=== PATIENT | male | born 1935 | race Caucasian/White ===

== ENCOUNTER 2017-04-14 10:42 | Inpatient (IN) | payer OTHER, MEDICARE ==
[~2017-04-14] VITALS: Ht 167.6 cm; Wt 78.0 kg
--- NOTE | 2017-04-14 10:48 | ED GENERAL ADULT ---
History of Present Illness General Chief Complaint: Fall Stated Complaint: SYNCOPE Source: patient Exam Limitations: poor historian Vital Signs & Intake/Output Vital Signs & Intake/Output Vital Signs Date Time Temp Pulse Resp B/P B/P Pulse O2 O2 Flow FiO2 Mean Ox Delivery Rate 04/14 1535 Room Air 04/14 1534 97.6 50 18 157/69 98 Room Air 04/14 1049 97.0 43 20 199/77 97 Room Air Allergies Coded Allergies: No Known Allergies (04/14/17) Reconcile Medications Aspirin (Aspirin*) 81 MG TAB.CHEW 1 TAB PO DAILY HEART HEALTH (Reported) Losartan Potassium 100 MG TABLET 1 TAB PO DAILY HEART (Reported) Triage Nurses Notes Reviewed? yes Onset: Abrupt Duration: minute(s): Timing: recent history HPI: 04/14/17 11 AM 82-year-old male presents to the emergency department for syncope. The patient states that he was in his usual state of health until earlier today he was walking and he suddenly went out. He fell back and hit his head. He has a 3 inch laceration to his occipital scalp. No neck pain or other complaints. The onset of the symptoms were abrupt, the duration was just today, the severity is significant; as his symptoms required him to come to the emergency for care. He has a past medical history of hypertension. He did take his medications today. He is bradycardic in the ED Past History Travel History Traveled to [place] past 21 day No Medical History Any Pertinent Medical History? see below for history Cardiovascular: hypertension Cancer(s): prostate cancer Surgical History Surgical History: non-contributory Psychosocial History What is your primary language Fijian Tobacco Use: Quit >30 days ago ETOH Use: occasional use Illicit Drug Use: denies illicit drug use Family History Hx Contributory? No Review of Systems Review of Systems Constitutional: Denies: fever. EENTM: Reports: see HPI. Respiratory: Denies: short of breath. Cardiovascular: Reports: no symptoms. GI: Denies: abdominal pain. Genitourinary: Reports: no symptoms. Musculoskeletal: Reports: no symptoms. Skin: Denies: rash. Neurological/Psychological: Reports: headache. Hematologic/Endocrine: Reports: bruising, bleeding. Immunologic/Allergic: Reports: no symptoms. Physical Exam Physical Exam General Appearance: well developed/nourished, alert, awake, anxious Head: lacerations Eyes: Bilateral: normal appearance, PERRL, EOMI. Ears, Nose, Throat: normal pharynx Neck: normal inspection, supple, full range of motion Respiratory: normal breath sounds, chest non-tender, no respiratory distress Cardiovascular: bradycardia Peripheral Pulses: 4+ radial (R), 4+ radial (L) Gastrointestinal: soft, non-tender Back: decreased range of motion Extremities: pedal edema Neurologic/Psych: no motor/sensory deficits, awake, alert, oriented x 3 Skin: intact, normal color, warm/dry, laceration Core Measures ACS in differential dx? No CVA/TIA Diagnosis: No Severe Sepsis Present: No Septic Shock Present: No Progress Differential Diagnoses I considered the following diagnoses in my evaluation of the patient: [ Bradycardia, acute coronary syndrome, adverse drug reaction] Plan of Care: Orders Procedure Date/time Status Heart Healthy Diet 04/14 D Active Admit to inpatient 04/14 1536 Active Vital Signs 04/14 1536 Active Code Status 04/14 1536 Active Add-on Test (ER Only) 04/14 1415 Active URINALYSIS 04/14 1059 Complete EKG 04/14 1059 Active TROPONIN LEVEL 04/14 1058 Complete LYME TITRE 04/14 1058 Active COMPREHENSIVE METABOLIC PANEL 04/14 1058 Complete CBC WITHOUT DIFFERENTIAL 04/14 1058 Complete Laboratory Tests 04/14/17 1210: Urine Color YEL, Urine Clarity CLEAR, Urine pH 6.0, Ur Specific [place] 1.020, Urine Protein NEG, Urine Ketones NEG, Urine Nitrite NEG, Urine Bilirubin NEG, Urine Urobilinogen 0.2, Ur Leukocyte Esterase NEG, Ur Microscopic EXAM NOT REQUIRED, Urine Hemoglobin NEG, Urine Glucose NEG 04/14/17 1100: Anion Gap 8, Estimated GFR > 60, BUN/Creatinine Ratio 27.3 H, Glucose 105 H, Calcium 9.2, Total Bilirubin 0.7, AST 26, ALT 32, Alkaline Phosphatase 77, Troponin I < 0.01, Total Protein 6.6, Albumin 4.2, Globulin 2.4, Albumin/ Globulin Ratio 1.8, CBC w Diff NO MAN DIFF REQ, RBC 4.00 L, MCV 95.0 H, MCH 32.4 H, RDW 13.9, MPV 7.8, Gran % 65.8, Lymphocytes % 20.3 L, Monocytes % 10.9 H, Eosinophils % 2.6, Basophils % 0.4, Absolute Granulocytes 3.5, Absolute Lymphocytes 1.1 L, Absolute Monocytes 0.6, Absolute Eosinophils 0.1, Absolute Basophils 0, PUBS MCHC 34.0 04/14/17 1058: Lyme Disease Antibody Pending Initial ED EKG: bradycardia, LBBB Prior EKG: changed Departure Departure Disposition: HOME OR SELF CARE Condition: Stable Clinical Impression Primary Impression: Syncope Secondary Impressions: Bradycardia Referrals: KEN MATHIAS MD (PCP/Family) Departure Forms: Customer Survey General Discharge Information Comments 04/14/17 Procedure Under sterile technique and with 10 mL of 1% lidocaine 7 kia were placed in the patient's 2-inch scalp laceration by the PA under my direct supervision [place] syncope No CHF No hematocrit less than 30% He does have an abnormal EKG No shortness of breath No systolic blood pressure less than [address] HEAD AND C-SPINE PATIENT: TIERNEY STAPLES PRESENT AGE: 82 PATIENT ACCOUNT NO: [id number] : 37 LOCATION: [facility] ORDERING PHYSICIAN: LAWRENCE PORTILLO DO SERVICE DATE: 04/14/17 EXAM TYPE: CAT - CT CERV SPINE WO IV CONTRAST; CT HEAD WO IV CONTRAST EXAMINATION: CT HEAD WITHOUT CONTRAST CT CERVICAL SPINE WITHOUT CONTRAST CLINICAL INFORMATION: Fall. Altered mental status. COMPARISON: None TECHNIQUE: 5 mm thin axial and reformatted 2.5 mm thin coronal images of brain were obtained. Subsequently, axial 2.5 mm thin and reformatted sagittal and coronal 2 mm thin images of cervical spine were obtained. DLP: 919 mGy-cm FINDINGS: BRAIN: There is no acute intra-axial, extra-axial bleed, masses or midline shift. There is no acute infarct in evolution. The [id number] matter distinction maintained. Both lateral ventricles are enlarged and so are the cortical sulci. Bone windows reveal no calvarial abnormality. There is mild mucoperiosteal thickening bilateral maxillary sinuses. Rest of the paranasal sinuses and mastoid air cells are well aerated. CERVICAL SPINE: There is mild straightening of cervical lordosis. The vertebral heights and alignment appear normal. Mild loss of C3-C4, C4-C5, C5-C6 and C6-C7 disc heights is noted. Moderate ventral and mild posterior spondylosis. The C6-C7 disc level appears fused. The craniovertebral junction appears normal. Moderate C2-C3, C4-C5 and left C3-C4 facet joint arthropathy and hypertrophy is noted. There is mild narrowing of right C3-C4, C4-C5, C6-C7 and bilateral C5-C6 neural foramina from uncovertebral hypertrophic changes are noted. No visible acute fracture or dislocation seen. The prevertebral and paravertebral soft tissues are normal. The thyroid lobes are symmetrical. The lung apices are clear. IMPRESSION: No acute intracranial process seen. There is age-related cerebral volume loss. No acute fracture or dislocation in cervical spine. There are degenerative disc changes with spondylosis C3-C4 through C6-C7 disc level. There is a bony fusion of the C6-C7 disc level. Bilateral uncovertebral hypertrophic changes as described above. DICTATED BY: JOSÉ FELDER MD DATE/TIME DICTATED:04/14/171303 MACHINE REPAIRER MAINTENANCE:JENIFER DATE/TIME TRANSCRIBED:04/14/171303 CONFIDENTIAL, DO NOT COPY WITHOUT APPROPRIATE AUTHORIZATION. <Electronically signed in Other Vendor System> SIGNED BY: JOSÉ FELDER MD 04/14/17 1527 Admission Note Spoke With: Litzy GOLDSTEIN MD Documentation of Exam: Documentation of any treatments & extenuating circumstances including Concerns Regarding Discharge (functional status, medication knowledge or non-compliance, living conditions, etc.) that warrant an admission rather than observation: [The patient needs serial troponins, cardiology consultation inpatient echocardiogram ] Critical Care Note Critical Care Note Critical Care Time: 30-74 min
[2017-04-14 11:10] LABS: ABSOLUTE BASOPHIL COUNT 0 /CUMM (0.0-0.2); ABSOLUTE EOSINOPHIL COUNT 0.1 /CUMM (0.0-0.7); ABSOLUTE GRANULOCYTE CT 3.5 /CUMM (1.4-6.5); ABSOLUTE LYMPH COUNT 1.1 /CUMM (1.2-3.4); ABSOLUTE MONOCYTE COUNT 0.6 /CUMM (0.10-0.60); BASOPHIL % 0.4 % (0.0-2.0); EOSINOPHIL % 2.6 % (0-5); GRANULOCYTE % 65.8 % (42.2-75.2); MEAN CORPUSCULAR HGB 32.4 PG (27.0-31.0); MEAN PLATELET VOLUME 7.8 FL (7.4-10.4); PLATELET COUNT 247 /CUMM (130-400); RBC DISTRIBUTION WIDTH 13.9 % (11.5-14.5); WHITE BLOOD CELL COUNT 5.4 /CUMM (4.8-10.8)
[2017-04-14] MEDS ORDERED: ASPIRIN81 M4 PO (11:23)
[2017-04-14] MEDS ORDERED: LOSARTAN POTAS100 M1 PO (11:23)
--- NOTE | 2017-04-14 12:28 | RADIOLOGY REPORT ---
EXAMINATION: XR PORTABLE CHEST CLINICAL INFORMATION: Status post fall. COMPARISON: 08/30/2009. TECHNIQUE: Portable AP erect view of the chest was obtained. FINDINGS: The cardiomediastinal silhouette is stable appearing with multiple intact sternal wires identified. There are multiple surgical clips overlying the superior right hemithorax along the superior margin of the scapula medially. The lungs and pleural spaces appear clear without evidence of congestion, consolidation, or significant appearing effusion or atelectasis. There is no evidence of pneumothorax or pulmonary edema. Included osseous structures appear largely unremarkable. IMPRESSION: No evidence of an acute intrathoracic process.
--- NOTE | 2017-04-14 15:27 | CT SCAN REPORT ---
EXAMINATION: CT HEAD WITHOUT CONTRAST CT CERVICAL SPINE WITHOUT CONTRAST CLINICAL INFORMATION: Fall. Altered mental status. COMPARISON: None TECHNIQUE: 5 mm thin axial and reformatted 2.5 mm thin coronal images of brain were obtained. Subsequently, axial 2.5 mm thin and reformatted sagittal and coronal 2 mm thin images of cervical spine were obtained. DLP: 919 mGy-cm FINDINGS: BRAIN: There is no acute intra-axial, extra-axial bleed, masses or midline shift. There is no acute infarct in evolution. The [id number] matter distinction maintained. Both lateral ventricles are enlarged and so are the cortical sulci. Bone windows reveal no calvarial abnormality. There is mild mucoperiosteal thickening bilateral maxillary sinuses. Rest of the paranasal sinuses and mastoid air cells are well aerated. CERVICAL SPINE: There is mild straightening of cervical lordosis. The vertebral heights and alignment appear normal. Mild loss of C3-C4, C4-C5, C5-C6 and C6-C7 disc heights is noted. Moderate ventral and mild posterior spondylosis. The C6-C7 disc level appears fused. The craniovertebral junction appears normal. Moderate C2-C3, C4-C5 and left C3-C4 facet joint arthropathy and hypertrophy is noted. There is mild narrowing of right C3-C4, C4-C5, C6-C7 and bilateral C5-C6 neural foramina from uncovertebral hypertrophic changes are noted. No visible acute fracture or dislocation seen. The prevertebral and paravertebral soft tissues are normal. The thyroid lobes are symmetrical. The lung apices are clear. IMPRESSION: No acute intracranial process seen. There is age-related cerebral volume loss. No acute fracture or dislocation in cervical spine. There are degenerative disc changes with spondylosis C3-C4 through C6-C7 disc level. There is a bony fusion of the C6-C7 disc level. Bilateral uncovertebral hypertrophic changes as described above.
--- NOTE | 2017-04-14 16:01 | History & Physical ---
KULWANT SORTO,VINCENT 04/14/17 1601: General Information and HPI History of Present Illness: Mr. Waters is a 82-year-old gentleman with a PMH significant for HTN, prostate cancer s/p seed implantation 10+ years ago and aortic vavle replacement who presents after a syncopal episode. Patient was in his usual health until this morning around 10AM he suddenly felt numb in his left fingers and passed out at work. He collapsed on the floor and hit his head resulting in a laceration in the occipital region. No seizure activitis witnessed reportedly. Prior to the syncopal episode patient had mild frontal headache but no chest pain, palpitations, vision changes, shortness of breath, dizziness/lightheadedness, or focal weakness. He states he has never had similar symptoms or episodes in the past. In ED patient was noted to be bradycardic in 40's and orthostat positive ( SBP 160 -> 130s), warranting an admission for a further evaluation. Patient lives at home with his . Fully independent and functional with all ADLs. 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 He doesn't smoke currently ( quit 50+ years ago). PCP - Dr. Donahue Surveillance System Monitor - Dr. Felder Full code. Allergies/Medications Allergies: Coded Allergies: No Known Allergies (04/14/17) Home Med list Aspirin (Aspirin*) 81 MG TAB.CHEW 1 TAB PO DAILY HEART HEALTH (Reported) Losartan Potassium 100 MG TABLET 1 TAB PO DAILY HEART (Reported) Past History Travel History Traveled to [place] past 21 day No Medical History Cardiovascular: hypertension Cancer(s): prostate cancer Tetanus Vaccine: 04/14/17 Surgical History Surgical History: non-contributory Past Family/Social History Psychosocial History ETOH Use: occasional use Illicit Drug Use: denies illicit drug use Review of Systems Review of Systems Constitutional: Reports: see HPI. Exam & Diagnostic Data Last 24 Hrs of Vital Signs/I&O Vital Signs Date Time Temp Pulse Resp B/P B/P Pulse O2 O2 Flow FiO2 Mean Ox Delivery Rate 04/14 1535 Room Air 04/14 1534 97.6 50 18 157/69 98 Room Air 04/14 1049 97.0 43 20 199/77 97 Room Air Intake & Output 04/14 1600 04/14 0800 04/14 0000 Intake Total Output Total Balance Patient 77.111 kg Weight Weight Reported by Patient Measurement Method Physical Exam General Appearance Alert, Oriented X3, Cooperative, No Acute Distress Skin 3 inch laceration in occipital head Skin Temp/Moisture Exam: Warm/Dry Sepsis Skin Exam (color): Normal for Ethnicity HEENT PERRLA, EOMI, Mucous Membr. moist/pink, Laceration (see above) Neck Supple, No JVD, No thryomegaly Cardiovascular Normal S1, Normal S2, No Murmurs, Gallops, Rubs, Bradycardia Lungs Clear to Auscultation, Normal Air Movement Abdomen Normal Bowel Sounds, Soft, No Tenderness Neurological Normal Speech, Strength at 5/5 X4 Ext, Normal Tone, Sensation Intact, Cranial Nerves 3-12 NL Extremities No Clubbing, No Cyanosis, No Edema, Normal Pulses, No Tenderness/ Swelling Vascular Normal Pulses, Pulses Symmetrical Last 24 Hrs of Labs/Daren: Laboratory Tests 04/14/17 1210: Urine Color YEL, Urine Clarity CLEAR, Urine pH 6.0, Ur Specific [place] 1.020, Urine Protein NEG, Urine Ketones NEG, Urine Nitrite NEG, Urine Bilirubin NEG, Urine Urobilinogen 0.2, Ur Leukocyte Esterase NEG, Ur Microscopic EXAM NOT REQUIRED, Urine Hemoglobin NEG, Urine Glucose NEG 04/14/17 1100: Anion Gap 8, Estimated GFR > 60, BUN/Creatinine Ratio 27.3 H, Glucose 105 H, Calcium 9.2, Total Bilirubin 0.7, AST 26, ALT 32, Alkaline Phosphatase 77, Troponin I < 0.01, Total Protein 6.6, Albumin 4.2, Globulin 2.4, Albumin/ Globulin Ratio 1.8, CBC w Diff NO MAN DIFF REQ, RBC 4.00 L, MCV 95.0 H, MCH 32.4 H, RDW 13.9, MPV 7.8, Gran % 65.8, Lymphocytes % 20.3 L, Monocytes % 10.9 H, Eosinophils % 2.6, Basophils % 0.4, Absolute Granulocytes 3.5, Absolute Lymphocytes 1.1 L, Absolute Monocytes 0.6, Absolute Eosinophils 0.1, Absolute Basophils 0, PUBS MCHC 34.0 04/14/17 1058: Lyme Disease Antibody Pending Assessment/Plan Assessment: Mr. Waters is a 82-year-old gentleman with a PMH significant for HTN and prostate cancer who presents after a syncopal episode concerning for symptomatic bradycardia. # Syncope Most likely 2/2 bradycardia and orthostatic hypotension. It is also possible that he had a TIA. CT head without any acute intracranial process. No significant abnormalities on EKG. * Admit to tele to monitor for arrhythymias * Vitals per protocol * Rule out ACS with serial trops/EKGs * Check TSH and lyme titers * Repeat orthostats (positive in ED) * Echocardiogram * Carotid ultrasound * Cardiology consult * Consider MRI and neuro input # Symptomatic bradycardia * Continuous cardiac monitoring * Appreciate cardio recs # HTN * Cont home meds losartan and ASA # Laceration in the head CT head unremarkable. Patient received Decavac in ED. [place] intact. * Dressing changes as needed - Heart healthy diet - Mild pain pathway - DVTppx with ALPS and SQH - Code: As Ranked By This Provider Problem List: 1. Syncope 2. Bradycardia 3. HTN (hypertension) Core Measures/Miscellaneous Acute Coronary Syndrome ACS Diagnosis: No Cerebrovascular Accident CVA/TIA Diagnosis: No Congestive Heart Failure CHF Diagnosis: No Venous Thromboembolism VTE Risk Factors: Age > 40 No [facility] VTE prophylaxis d/t: No contraindications No VTE Pharm Prophylaxis d/t: No contraindications VTE Diagnosis: No VTE Type: NONE VTE Confirmed by (Test): NONE Severe Sepsis Severe Sepsis Present: No Septic Shock Septic Shock Present: No Miscellaneous Documentation Attending Case Discussed With: SUMIT CRAIG MD Primary Care Physician: KEN DONAHUE MD Patient sees these Specialists See HPI Level of Patient Care: Telemetry JAYDEELIE 04/14/17 1719: Resident Review Statement Resident Statement: examined this patient, discussed with international trade specialist, agreed with international trade specialist, discussed with family, reviewed EMR data (avail), discussed with nursing , discussed with case mgmt, reviewed images Other Findings: is an 82 yo man with PMHx. significant for HTN, CABAG with valve replacement about 10 years ago, prostatic cancer presented to ED with a c/o of syncopal attack. Detailed history as above Vitals, examination, labs and imaging as above EKG: Sinus bradycardia, rate 48, Lt. axis deviation, old q wave not changed from previous EKG. Assessment: #Syncopal episode #Bradycardia #Head laceration 2/2 syncopal episode and fall #Hx. of CABG #Hx. of HTN #Hx. of Prostat cancer Plan: -Will admitt the patient to telemetry floor, will monitor for any arrhythmia and closely monitor heart rate. -Cardiology consult with Dr. Allen -Echocardiogram -Will trend Troponin and EKG x 2 -Fall precaution -Will continue home medications for BP -Will check lyme titer and TSH -Pain management pathway -Heart healthy diet Case discussed with attending DVT ppx: sc heparin Full code
[2017-04-14 18:07] VITALS: BP 136/88
[2017-04-15 00:50] VITALS: BP 116/70
--- NOTE | 2017-04-15 06:51 | PN- Housestaff ---
Subjective Follow-up For: Synope Tele-Events Since Last Visit: SR and SB in 50s PVCs, PACs Subjective: Patient seen and examined at bedside. Resting comfortably in bed with no complaints. Denies any fever, chills, dyspnea, chest pain, palpitations, lightheadedness, dizziness, abdominal pain, n/v/c/d. Review of Systems Constitutional: Reports: see HPI. Objective Last 24 Hrs of Vital Signs/I&O Vital Signs Date Time Temp Pulse Resp B/P B/P Pulse O2 O2 Flow FiO2 Mean Ox Delivery Rate 04/15 1149 53 118/58 04/15 0943 65 112/60 04/15 0835 98.9 04/15 0807 99.7 60 18 120/68 95 Room Air 04/15 0050 97.9 74 20 116/70 95 Room Air 04/14 1807 98.3 69 20 136/88 99 Room Air 04/14 1751 96.4 49 18 150/67 96 04/14 1535 Room Air 04/14 1534 97.6 50 18 157/69 98 Room Air Intake & Output 04/15 1600 04/15 0800 04/15 0000 Intake Total 240 480 Output Total Balance 240 480 Intake, Oral 240 480 Patient 78.018 kg Weight Weight Reported by Patient Measurement Method Physical Exam General Appearance: Alert, Oriented X3, Cooperative, No Acute Distress Other Physical Findings: Skin 3 inch laceration in occipital head Skin Temp/Moisture Exam: Warm/Dry Sepsis Skin Exam (color): Normal for Ethnicity HEENT PERRLA, EOMI, Mucous Membr. moist/pink, Laceration (see above) Neck Supple, No JVD, No thryomegaly Cardiovascular Normal S1, Normal S2, No Murmurs, Gallops, Rubs, Bradycardia Lungs Clear to Auscultation, Normal Air Movement Abdomen Normal Bowel Sounds, Soft, No Tenderness Neurological Normal Speech, Strength at 5/5 X4 Ext, Normal Tone, Sensation Intact, Cranial Nerves 3-12 NL Extremities No Clubbing, No Cyanosis, No Edema, Normal Pulses, No Tenderness/ Swelling Vascular Normal Pulses, Pulses Symmetrical Current Medications: Current Medications Sig/[place] Start time Last Medication Dose Route Stop Time Status Admin Acetaminophen 650 MG Q6P PRN 04/14 1615 AC PO Aspirin 81 MG DAILY 04/15 1000 AC 04/15 PO 0937 Heparin Sodium 5,000 UNIT Q8 04/14 2200 AC 04/15 (Porcine) SC 0644 Lidocaine 0 .STK-MED ONE 04/14 1407 DC .ROUTE Lidocaine 10 ML ONCE ONE 04/14 1400 DC 04/14 SC 04/14 1401 1406 Losartan Potassium 100 MG DAILY 04/15 1000 AC PO Tetanus/Diphtheria 0 .STK-MED ONE 04/14 1407 DC Toxoids Adsorbed IM Tetanus/Diphtheria 0.5 ML ONCE ONE 04/14 1400 DC 04/14 Toxoids Adsorbed IM 04/14 1401 1406 Last 24 Hrs of Lab/Daren Results Last 24 Hrs of Labs/Mics: Laboratory Tests 04/15/17 0600: Anion Gap 8, Estimated GFR 58 L, BUN/Creatinine Ratio 20.0, Magnesium 2.1, CBC w Diff NO MAN DIFF REQ, RBC 4.31 L, MCV 95.8 H, MCH 31.9 H, RDW 13.9, MPV 8.3 , Gran % 75.5 H, Lymphocytes % 12.5 L, Monocytes % 10.4 H, Eosinophils % 1.3, Basophils % 0.3, Absolute Granulocytes 5.5, Absolute Lymphocytes 0.9 L, Absolute Monocytes 0.7 H, Absolute Eosinophils 0.1, Absolute Basophils 0, PUBS MCHC 33.3 04/14/17 2320: Troponin I 0.03, TSH 2.300, Lyme Disease Antibody 0.20 04/14/17 1712: TSH Cancelled 04/14/17 1332: Troponin I 0.03 Assessment/Plan Assessment: Mr. Waters is a 82-year-old gentleman with a PMH significant for HTN and prostate cancer who presents after a syncopal episode concerning for symptomatic bradycardia. # Syncope Most likely 2/2 bradycardia and orthostatic hypotension. It is also possible that he had a TIA. CT head without any acute intracranial process. No significant abnormalities on EKG. * Vitals per protocol * Rule out ACS with serial trops/EKGs - negative * Check TSH and lyme titers - unremarkable * Repeat orthostats - positive * Encourage fluid intake by mouth * Echocardiogram pending * Appreciate cardio recs * Consider MRI, carotid ultrasound and neuro input for recurrent sxs # Bradycardia - improving Occassionaly in sinus bradycardia but mostly in 60s. Currently w/o any sxs. * Continuous cardiac monitoring * Appreciate cardio recs # HTN * Cont home meds losartan and ASA # Laceration in the head CT head unremarkable. Patient received Decavac in ED. [place] intact. * Dressing changes as needed - Heart healthy diet - Mild pain pathway - DVTppx with ALPS and SQH - Code: Problem List: 1. Syncope 2. Bradycardia 3. HTN (hypertension) Pain Ratin Pain Location: 0 Pain Goal: Remain pain free Pain Plan: Mild pathway Tomorrow's Labs & Rationales: None
[2017-04-15 07:57] LABS: ABSOLUTE BASOPHIL COUNT 0 /CUMM (0.0-0.2); ABSOLUTE EOSINOPHIL COUNT 0.1 /CUMM (0.0-0.7); ABSOLUTE GRANULOCYTE CT 5.5 /CUMM (1.4-6.5); ABSOLUTE LYMPH COUNT 0.9 /CUMM (1.2-3.4); ABSOLUTE MONOCYTE COUNT 0.7 /CUMM (0.10-0.60); BASOPHIL % 0.3 % (0.0-2.0); EOSINOPHIL % 1.3 % (0-5); GRANULOCYTE % 75.5 % (42.2-75.2); HEMATOCRIT 41.3 % (42-52); MEAN CORPUSCULAR HGB 31.9 PG (27.0-31.0); MEAN CORPUSCULAR HGB CONC 33.3 G/DL (33.0-37.0); MEAN CORPUSCULAR VOLUME 95.8 FL (80.0-94.0); MEAN PLATELET VOLUME 8.3 FL (7.4-10.4); PLATELET COUNT 253 /CUMM (130-400); RBC DISTRIBUTION WIDTH 13.9 % (11.5-14.5); RED BLOOD CELL CT 4.31 /CUMM (4.70-6.10); WHITE BLOOD CELL COUNT 7.2 /CUMM (4.8-10.8)
[2017-04-15 08:07] VITALS: BP 120/68
[2017-04-15 11:49] VITALS: BP 118/58
--- NOTE | 2017-04-15 11:58 | Cons- Cardiology ---
General Information and HPI Consulting Request Date of Consult: 04/15/17 Requested By: Litzy GOLDSTEIN MD Reason for Consult: syncope Source of Information: patient, old records Allergies/Medications Allergies: Coded Allergies: No Known Allergies (04/14/17) Home Med List: Aspirin (Aspirin*) 81 MG TAB.CHEW 1 TAB PO DAILY HEART HEALTH (Reported) Losartan Potassium 100 MG TABLET 1 TAB PO DAILY HEART (Reported) Current Medications: Current Medications Sig/Napoleon Start time Last Medication Dose Route Stop Time Status Admin Acetaminophen 650 MG Q6P PRN 04/14 1615 AC PO Aspirin 81 MG DAILY 04/15 1000 AC 04/15 PO 0937 Heparin Sodium 5,000 UNIT Q8 04/14 2200 AC 04/15 (Porcine) SC 0644 Lidocaine 0 .STK-MED ONE 04/14 1407 DC .ROUTE Lidocaine 10 ML ONCE ONE 04/14 1400 DC 04/14 SC 04/14 1401 1406 Losartan Potassium 100 MG DAILY 04/15 1000 AC PO Tetanus/Diphtheria 0 .STK-MED ONE 04/14 1407 DC Toxoids Adsorbed IM Tetanus/Diphtheria 0.5 ML ONCE ONE 04/14 1400 DC 04/14 Toxoids Adsorbed IM 04/14 1401 1406 Past History Travel History Traveled to [place] past 21 day No Medical History Blood Transfusion Hx: No Neurological: SYNCOPE EENT: NONE Cardiovascular: hypertension, OPEN HEART SURGERY CARIDAC VALVE REPLACEMNT Respiratory: NONE Gastrointestinal: NONE Hepatic: NONE Renal: NONE Musculoskeletal: NONE Psychiatric: NONE Endocrine: NONE Blood Disorders: NONE Cancer(s): prostate cancer 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 Other Services at Home: None Smoking Status: Never Smoked ETOH Use: occasional use Illicit Drug Use: denies illicit drug use Exam & Diagnostic Data Vital Signs and I&O Vital Signs Date Time Temp Pulse Resp B/P B/P Pulse O2 O2 Flow FiO2 Mean Ox Delivery Rate 04/15 1149 53 118/58 04/15 0943 65 112/60 04/15 0835 98.9 04/15 0807 99.7 60 18 120/68 95 Room Air 04/15 0050 97.9 74 20 116/70 95 Room Air 04/14 1807 98.3 69 20 136/88 99 Room Air 04/14 1751 96.4 49 18 150/67 96 04/14 1535 Room Air 04/14 1534 97.6 50 18 157/69 98 Room Air Intake & Output 04/15 0804/15 0000 04/14 0000 Intake Total 240 480 Output Total Balance 240 480 Intake, Oral 240 480 Patient 172 lb 170 lb Weight Weight Reported by Patient Reported by Patient Measurement Method Labs/Daren Results: Laboratory Tests 04/15 04/14 04/14 06 2320 1712 Chemistry Sodium (137 - 145 mmol/L) 139 Potassium (3.5 - 5.1 mmol/L) 4.7 Chloride (98 - 107 mmol/L) 104 Carbon Dioxide (22 - 30 mmol/L) 27 Anion Gap (5 - 16) 8 BUN (9 - 20 mg/dL) 24 H Creatinine (0.7 - 1.2 mg/dL) 1.2 Estimated GFR (>60 ml/min) 58 L BUN/Creatinine Ratio (7 - 25 %) 20.0 Magnesium (1.6 - 2.3 mg/dL) 2.1 Troponin I (<0.11 ng/ml) 0.03 TSH (0.270 - 4.200 uIU/mL) 2.300 Cancelled Hematology CBC w Diff NO MAN DIFF REQ WBC (4.8 - 10.8 /CUMM) 7.2 RBC (4.70 - 6.10 /CUMM) 4.31 L Hgb (14.0 - 18.0 G/DL) 13.7 L Hct (42 - 52 %) 41.3 L MCV (80.0 - 94.0 FL) 95.8 H MCH (27.0 - 31.0 PG) 31.9 H RDW (11.5 - 14.5 %) 13.9 Plt Count (130 - 400 /CUMM) 253 MPV (7.4 - 10.4 FL) 8.3 Gran % (42.2 - 75.2 %) 75.5 H Lymphocytes % (20.5 - 51.1 %) 12.5 L Monocytes % (1.7 - 9.3 %) 10.4 H Eosinophils % (0 - 5 %) 1.3 Basophils % (0.0 - 2.0 %) 0.3 Absolute Granulocytes (1.4 - 6.5 /CUMM) 5.5 Absolute Lymphocytes (1.2 - 3.4 /CUMM) 0.9 L Absolute Monocytes (0.10 - 0.60 /CUMM) 0.7 H Absolute Eosinophils (0.0 - 0.7 /CUMM) 0.1 Absolute Basophils (0.0 - 0.2 /CUMM) 0 PUBS MCHC (33.0 - 37.0 G/DL) 33.3 Serology Lyme Disease Antibody (RATIO) 0.20 04/14 04/14 1332 1210 Chemistry Troponin I (<0.11 ng/ml) 0.03 Urines Urine Color (YEL,AMB,STR) YEL Urine Clarity (CLEAR) CLEAR Urine pH (5.0 - 8.0) 6.0 Ur Specific [place] (1.001 - 1.035) 1.020 Urine Protein (NEG,<30 MG/DL) NEG Urine Ketones (NEG) NEG Urine Nitrite (NEG) NEG Urine Bilirubin (NEG) NEG Urine Urobilinogen (0.1 - 1.0 EU/dl) 0.2 Ur Leukocyte Esterase (NEG) NEG Ur Microscopic EXAM NOT REQUIRED Urine Hemoglobin (NEG) NEG Urine Glucose (N MG/DL) NEG 04/14 04/14 1100 1058 Chemistry Sodium (137 - 145 mmol/L) 138 Potassium (3.5 - 5.1 mmol/L) 4.8 Chloride (98 - 107 mmol/L) 102 Carbon Dioxide (22 - 30 mmol/L) 27 Anion Gap (5 - 16) 8 BUN (9 - 20 mg/dL) 30 H Creatinine (0.7 - 1.2 mg/dL) 1.1 Estimated GFR (>60 ml/min) > 60 BUN/Creatinine Ratio (7 - 25 %) 27.3 H Glucose (65 - 99 mg/dL) 105 H Calcium (8.4 - 10.2 mg/dL) 9.2 Total Bilirubin (0.2 - 1.3 mg/dL) 0.7 AST (17 - 59 U/L) 26 ALT (21 - 72 U/L) 32 Alkaline Phosphatase (< 127 U/L) 77 Troponin I (<0.11 ng/ml) < 0.01 Total Protein (6.3 - 8.2 g/dL) 6.6 Albumin (3.5 - 5.0 g/dL) 4.2 Globulin (1.9 - 4.2 gm/dL) 2.4 Albumin/Globulin Ratio (1.1 - 2.2 %) 1.8 Hematology CBC w Diff NO MAN DIFF REQ WBC (4.8 - 10.8 /CUMM) 5.4 RBC (4.70 - 6.10 /CUMM) 4.00 L Hgb (14.0 - 18.0 G/DL) 12.9 L Hct (42 - 52 %) 38.0 L MCV (80.0 - 94.0 FL) 95.0 H MCH (27.0 - 31.0 PG) 32.4 H RDW (11.5 - 14.5 %) 13.9 Plt Count (130 - 400 /CUMM) 247 MPV (7.4 - 10.4 FL) 7.8 Gran % (42.2 - 75.2 %) 65.8 Lymphocytes % (20.5 - 51.1 %) 20.3 L Monocytes % (1.7 - 9.3 %) 10.9 H Eosinophils % (0 - 5 %) 2.6 Basophils % (0.0 - 2.0 %) 0.4 Absolute Granulocytes (1.4 - 6.5 /CUMM) 3.5 Absolute Lymphocytes (1.2 - 3.4 /CUMM) 1.1 L Absolute Monocytes (0.10 - 0.60 /CUMM) 0.6 Absolute Eosinophils (0.0 - 0.7 /CUMM) 0.1 Absolute Basophils (0.0 - 0.2 /CUMM) 0 PUBS MCHC (33.0 - 37.0 G/DL) 34.0 Serology Lyme Disease Antibody (RATIO) 0.14 Diagnostic Data CXR Results FINDINGS: The cardiomediastinal silhouette is stable appearing with multiple intact sternal wires identified. There are multiple surgical clips overlying the superior right hemithorax along the superior margin of the scapula medially. The lungs and pleural spaces appear clear without evidence of congestion, consolidation, or significant appearing effusion or atelectasis. There is no evidence of pneumothorax or pulmonary edema. Included osseous structures appear largely unremarkable. IMPRESSION: No evidence of an acute intrathoracic process. Assessment/Plan Consult Acknowledgment - Thank you for your consult request.
--- NOTE | 2017-04-15 13:33 | Patient Discharge Instructions ---
Discharge Instructions General Discharge Information You were seen/treated for: Syncope. Special Instructions: 1.Please f/u with your rental agent and PCP within 1 -2 weeks after the discharge. 2.Please return to the ER if symtoms get worse after the discharge. Diet Recommended Diet: Heart Healthy Activity Activity Self Limited: No Acute Coronary Syndrome Inclusion Criteria At DC or during hospital stay patient has or had the following: ACS DIAGNOSIS No Discharge Core Measures Meds if any: Prescribed or Continued at Discharge Meds if any: NOT Prescribed or Continued at Discharge Congestive Heart Failure Inclusion Criteria At DC or during hospital stay patient has or had the following: CHF DIAGNOSIS No Discharge Core Measures Meds if any: Prescribed or Continued at Discharge Meds if any: NOT Prescribed or Continued at Discharge Cerebrovascular accident Inclusion Criteria At DC or during hospital stay patient has or had the following: CVA/TIA Diagnosis No Discharge Core Measures Meds if any: Prescribed or Continued at Discharge Meds if any: NOT Prescribed or Continued at Discharge Venous thromboembolism Inclusion Criteria VTE Diagnosis No VTE Type NONE VTE Confirmed by (Test) NONE Discharge Core Measures - Per Current guidelines, there needs to be overlap - treatment for the first 5 days of Warfarin therapy. - If discharged on Warfarin prior to 5 days of - overlap therapy, the patient will need to be - assessed for post discharge needs including - *Post discharge parental anticoagulation - *Warfarin and/or parental anticoagulation education - *Follow up date to check INR post discharge At least 5 days overlap therapy as Inpatient No Meds if any: Prescribed or Continued at Discharge Note: Overlap Therapy is Warfarin and Anticoagulant Meds if any: NOT Prescribed or Continued at Discharge
[2017-04-15] MEDS ORDERED: LOSARTAN POTASS50 M1 PO (14:55)
--- NOTE | 2017-04-15 16:29 | ECHOCARDIOGRAM REPORT ---
TIERNEY STAPLES Age: 82 : 1935 Gender: M Exam Date: 04/14/2017 20:05 Exam Location: [address] Ht (in): 66 Wt (lb): 170 BSA: 1.91 BP: 157 / 69 Ordering Physician: ELIE OLSON MD Referring Physician: Srinivas Allen MD Technologist: Phoebe Rizvi [facility] Room Number: 189-01 Indications: PRESYNCOPE/SYNCOPE Rhythm: Sinus Technical Quality: Good FINDINGS Left Ventricle Normal size left ventricle. No obvious regional wall motion abnormalities. Abnormal septal motion. Normal left ventricular ejection fraction estimated at 55-60%. Right Ventricle Right ventricle at upper limits of normal. Right Atrium Normal right atrial size. Left Atrium Mild left atrial dilatation. Mitral Valve Severe thickening/calcification of the posterior mitral valve leaflet. Mild mitral annular calcification. Mild mitral stenosis. 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 Tricuspid Valve Tricuspid valve not well visualized, grossly normal. Mild tricuspid regurgitation. Pulmonic Valve Pulmonic valve not well visualized, grossly normal. Trace pulmonic regurgitation. Pericardium No pericardial effusion. Great Vessels Normal size aortic root and proximal ascending aorta. CONCLUSIONS 1. A normally functioning bioprosthetic aortic valve is present (size unknown) with mild thickening of the prosthetic valve leaflets noted. The peak gradient across the valve is 20 mmHg. Minimal to mild central aortic insufficiency is present. 2. Marked thickening and calcification of the anterior mitral leaflet is present with mild anular calcification and evidence of mild mitral stenosis ( PDG 10 mmHg; MDG 4 mmHg; MVA 2.4 cm2) with minimal to mild mitral insufficiency and mild left atrial enlargement. 3. There is no pericardial fluid detected at the present time. 4 The left ventricular chamber size and systolic function appear normal. Abnormal septal motion is present which is likely a postoperative finding. 5. The right heart chambers are upper normal in size . Mild tricuspid insufficiency is present with minimal pulmonic insufficiency and an estimated RV systolic pressure of 38 mmHg. 6. No prior study was available for comparison. Srinivas Allen M.D. (Electronically Signed) Final Date: 15 April 2017 16:28 MEASUREMENTS (Male / Female) Normal Values 2D ECHO LV Diastolic Diameter PLAX 4.7 cm 4.2 - 5.9 / 3.9 - 5.3 cm LV Systolic Diameter PLAX 2.1 cm 2.1 - 4.0 cm LV Fractional Shortening PLAX 55.3 % 25 - 46 % LV Ejection Fraction 2D Teich 85.9 % IVS Diastolic Thickness 1.1 cm LVPW Diastolic Thickness 1.0 cm LV Relative Wall Thickness 0.4 RV Internal Dim ED PLAX 2.6 cm 1.9 - 3.8 cm LVOT Diameter 2.0 cm Aortic Root Diameter 3.0 cm LA Systolic Diameter LX 4.4 cm 3.0 - 4.0 / 2.7 - 3.8 cm LA Volume 41.0 cm 18 - 58 / 22 - 52 cm Ascending Aorta Diameter 3.7 cm DOPPLER AV Peak Velocity 243.0 cm/s AV Peak Gradient 23.6 mmHg AV Mean Velocity 163.0 cm/s AV Mean Gradient 12.0 mmHg AV Velocity Time Integral 50.2 cm LVOT Peak Velocity 132.0 cm/s LVOT Peak Gradient 7.0 mmHg LVOT Mean Velocity 90.1 cm/s LVOT Mean Gradient 4.0 mmHg LVOT Velocity Time Integral 25.8 cm LVOT Stroke Volume 81.1 cm AV Area Cont Eq vti 1.6 cm AV Area Cont Eq pk 1.7 cm MV Peak Velocity 155.0 cm/s MV Peak Gradient 9.6 mmHg MV Mean Velocity 77.5 cm/s MV Mean Gradient 3.0 mmHg Mitral E Point Velocity 93.8 cm/s Mitral A Point Velocity 123.0 cm/s Mitral E to A Ratio 0.8 MV PHT Velocity 122.0 cm/s MV Deceleration [place] 343.0 cm/s MV Pressure Half Time 106.7 ms MV Area PHT 2.1 cm MV Deceleration Time 391.0 ms TR Peak Velocity 282.0 cm/s TR Peak Gradient 31.8 mmHg Right Atrial Pressure 5.0 mmHg Pulmonary Artery Systolic Pressu 36.8 mmHg Right Ventricular Systolic Press 36.8 mmHg PV Peak Velocity 110.0 cm/s PV Peak Gradient 4.8 mmHg PV Mean Velocity 76.0 cm/s PV Mean Gradient 3.0 mmHg PV Velocity Time Integral 25.4 cm LV E' Lateral Velocity 10.4 cm/s Mitral E to LV E' Lateral Ratio 9.0 LV E' Septal Velocity 6.5 cm/s Mitral E to LV E' Septal Ratio 14.4
--- NOTE | 2017-04-22 09:47 | Discharge Summary ---
Visit Information Visit Dates Admission Date: 04/14/17 Discharge Date: 04/15/17 Hospital Course Course Attending Physician: Litzy GOLDSTEIN MD Primary Care Physician: MEY SORTO,[facility] Course: Mr. Waters is a 82-year-old gentleman with a PMH significant for HTN and prostate cancer who presented after a syncopal episode. # Syncope Most likely 2/2 orthostatic hypotension as he was his BP dropped significantly with standing up. It is also possible that he had a TIA or symptomatic bradycardia. CT head was negative for any acute intracranial process. No significant abnormalities on EKG. ACS was ruled out with serial trops/EKGs. TSH and lyme titers were unremarkable. Echo did not reveal any significant abnormalities (see below). Given his presentation with orthostatic hypotension, his home med Losartan was held during the admission. His Losartan dose was decreased from 100mg daily to 50mg daily. - Echo (04/14): 1. A normally functioning bioprosthetic aortic valve is present ( size unknown) with mild thickening of the prosthetic valve leaflets noted. The peak gradient across the valve is 20 mmHg. Minimal to mild central aortic insufficiency is present. 2. Marked thickening and calcification of the anterior mitral leaflet is present with mild anular calcification and evidence of mild mitral stenosis ( PDG 10 mmHg; MDG 4 mmHg; MVA 2.4 cm2) with minimal to mild mitral insufficiency and mild left atrial enlargement. 3. There is no pericardial fluid detected at the present time. 4 The left ventricular chamber size and systolic function appear normal. Abnormal septal motion is present which is likely a postoperative finding. 5. The right heart chambers are upper normal in size . Mild tricuspid insufficiency is present with minimal pulmonic insufficiency and an estimated RV systolic pressure of 38 mmHg. # Bradycardia HR on admission was in low 40s. His HR returned to a normal range spontaneously and stayed mostly in 60s. He was asymptomatic during the hospitalization. # HTN BP tended to be on a lower side. Held Losartan for above reasons. Dose decreased to 50mg on discharge. # Laceration in the head CT head unremarkable. Patient received Decavac in ED. Incision was closed with kia in ER. No signs of infection appreciated. Healed well. 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 2.Please return to the ER if symtoms get worse after the discharge. Medications at Discharge Discharge Medications: Stop taking the following medications: Losartan Potassium (Losartan Potassium) 100 MG TABLET ORAL DAILY Qty = 30 Continue taking these medications: Aspirin (Aspirin*) 81 MG TAB.CHEW 1 Tablet ORAL DAILY Comments: Last Taken: 04/15/17 Time: 9:30 AM Start taking the following new medications: Losartan Potassium (Losartan Potassium) 50 MG TABLET 50 Milligram ORAL DAILY Qty = 30 No Refills Comments: NOT GIVEN IN HOSPITAL Copies To: MEY SORTO,KEN; GRADY SORTO,SARAY [place]ont
== END 2017-04-15 16:48 | DRG 312 ==
LOC: ERH 10:42 → ERHI 15:36 → 1NO 15:36 → ENRESERV 17:04 → ENTRNSPT 17:44 → EDTRNSPTTYP 17:46 → 1NO 17:59 → CMPTRNSPT 18:11 → ENPENDDIS 04-15 14:57 → 1NO 04-15 16:48 → DELTRNSPT 04-16 16:59
PROVIDERS: Emergency Medicine; Student in an Organized Health Care Education/Training Program; ADMIT Specialist
PROC: 0HQ0XZZ Repair Scalp Skin, External Approach (ICD-10-PCS; principal; 2017-04-14)
DX: I95.1 Orthostatic hypotension (principal); R00.1 Bradycardia, unspecified; Z95.1 Presence of aortocoronary bypass graft; I10 Essential (primary) hypertension; Z95.4 Presence of other heart-valve replacement; Z85.46 Personal history of malignant neoplasm of prostate; Z87.891 Personal history of nicotine dependence; S01.01XA Laceration without foreign body of scalp, initial encounter; W19.XXXA Unspecified fall, initial encounter; Y92.9 Unspecified place or not applicable
CPT/HCPCS: 1NSP; 86618; 36415; 81003; 82436; 90471; 90714; 93005; 93010; 93306; 97161-GP; J1644; J3490